=== PATIENT | male | born 1975 | race Caucasian/White ===

== ENCOUNTER 2023-01-01 23:46 | Emergency (ER) | payer BC, SELFPAY ==
[2023-01-01 23:52] VITALS: BP 136/87; PULSE 83; RESP 14; TEMP 37; O2SAT 93; BMI 28.3
[2023-01-02 00:17] VITALS: BP 127/77; PULSE 78; RESP 18; TEMP 36.9; O2SAT 94
--- NOTE | 2023-01-02 00:20 | PC.NURSE ---
Pt ca&ox4, no signs of distress. Pt ambulates with a steady gait. Pt reports unsure how he sustained the injury to his right thumb nail. Vitals stable. Pt changed into hospital attire. Plan of care ongoing.
--- NOTE | 2023-01-02 00:41 | ED.EXTPRO ---
HPI - Extremity Problem General Chief complaint: Extremity Injury, Upper Stated complaint: Infection on thumb nail Time Seen by Provider: 01/02/23 00:36 Source: patient Mode of arrival: ambulatory Limitations: no limitations History of Present Illness HPI Narrative: Patient comes to the emergency room complaining of an infection in the right thumb. Patient states that approximately 4 days ago, patient was doing some yd work. A few days later, he started noticing erythema spreading from the distal end of the nail towards the skin portion of the thumb. Patient denies fever or chills. Related Data Previous Rx's Medication Instructions Recorded miconazole nitrate 2 % topical 1 appl topical BID #14.2 grams 01/02/23 cream (Antifungal (miconazole)) sulfamethoxazole 800 1 tab PO BID #14 tabs 01/02/23 mg-trimethoprim 160 mg tablet (Bactrim DS) Allergies Allergy/AdvReac Type Severity Reaction Status Date / Time codeine AdvReac Unknown Verified 01/01/23 23:50 Review of Systems Review of Systems: Constitutional : No Weight loss, No Fever, No Chills, No Night Sweats, No Fatigue, No Malaise ENT/Mouth : No Hearing loss, No Ear Pain, No Nasal Congestion, No Sinus Pain, No Hoarseness, No sore throat, No Rhinorrhea, No Swallowing Difficulty Eyes: No Eye Pain, No Swelling, No Redness, No Foreign Body, No Discharge, No Vision Changes Cardiovascular : No Chest Pain, No SOB, No Dyspnea on Exertion, No Orthopnea, No Edema, No Palpitations Respiratory : No Cough, No Sputum, No Wheezing, No Smoke Exposure, No Dyspnea Gastrointestinal : No Nausea, No Vomiting, No Diarrhea, No Constipation, No abdominal Pain, No Hematochezia, No Melena Genitourinary : no irregular bleeding, No Dysuria, No Urinary Frequency, No Hematuria, No Urinary Incontinence, No Urgency, No Flank Pain, No Urinary Flow Changes, No Hesitancy Musculoskeletal : No joint pain, No Myalgias, No Joint Swelling Skin : Erythema/cellulitis right thumb Neuro : No Weakness, No Numbness, No Paresthesias, No Loss of Consciousness, No Dizziness, No Headache Psych : No Anxiety/Panic, No Depression, No SI/HI/AH/VH, No Social Issues, Heme/Lymph: No Bruising, No Bleeding,No Lymphadenopathy Endocrine : No Polyuria, No Polydipsia, No Temperature Intolerance [facility] Social History Social History Smoked in Last 30 Days: Yes Use of substances other than those prescribed or required for medical reasons: No Advance Directives: No Advance Directives Information Provided: No Physical Exam Vital Signs: Vital Signs: Last Vital Signs Temp 98.4 F 01/02/23 00:17 Pulse 78 01/02/23 00:17 Resp 18 01/02/23 00:17 BP 127/77 01/02/23 00:17 Pulse Ox 94 01/02/23 00:17 O2 Del Method Room Air 01/02/23 00:17 BMI result Body Mass Index 28.3 Const: Other: Appearance: Alert. Oriented X3. No acute distress. Eyes: Pupils equal, round and reactive to light. ENT: Pharynx normal. Neck: Normal inspection. Neck supple. No lymph nodes noted. No crepitus CVS: Normal heart rate and rhythm. Pulses normal. Normal S1 and S2 Respiratory: No respiratory distress. Breath sounds normal. No Wheezing. No rales Abdomen: Soft and nontender. No rigidity. No distention. Skin: Skin warm and dry. Normal skin color. Normal skin turgor. Under the right thumb distal end of the nail there is some erythema spreading towards the distal finger, not pus drainage, no obvious foreign body under the nail Extremities: No lower extremity edema. No Lacerations. No Rash Neuro: Oriented X 3. No motor deficit. No sensory deficit. Moving all extremities. No slurred speech. CN 2 through 12 grossly intact Psych: calm, cooperative, normal affect Medical Decision Making Medical Decision Making MDM Narrative: -I discussed with the patient that this could be cellulitis but could be a fungal infection given that he has been working with [employer]. - Patient received the 1st dose of p.o. antibiotic, Bactrim. Differential Diagnosis Differential Diagnoses: The differential diagnosis associated with the presentation includes (Cellulitis, dermatitis, fungal infection) Discharge Plan Discharge Clinical Impression: Cellulitis of finger Patient Disposition: Home, Self-Care Instructions: Cellulitis (ED) Additional Instructions: Please follow-up with your primary care physician tomorrow. If you have any worsening or new symptoms, please return to the emergency room or call 911 Prescriptions: New sulfamethoxazole-trimethoprim [Bactrim DS] 800-160 mg tablet 1 tab PO BID Qty: 14 0RF miconazole nitrate [Antifungal (miconazole)] 2 % cream 1 appl topical BID Qty: 14.2 0RF
--- NOTE | 2023-01-02 00:58 | PC.NURSE ---
Pt medicated per may. Plan of care ongoing.
== END 2023-01-02 01:15 | disposition home or self-care (01) ==
PROVIDERS: Emergency Provider Emergency Medicine; PCP Family Medicine
DX: L03.011 Cellulitis of right finger (principal)
CPT/HCPCS: 99283; 99284

== ENCOUNTER 2023-08-22 13:36 | Emergency (ER) | payer BC, SELFPAY ==
--- NOTE | ~2023-08-22 | XR_ITS ---
EXAMINATION: XR HAND, LEFT CLINICAL INFORMATION: Lateral pain and swelling COMPARISON: None available. TECHNIQUE: PA, lateral, and oblique views of the left hand. FINDINGS: There is a complex 5th metacarpal fracture, nondisplaced.. Alignment is anatomic. Joint spaces are maintained. No erosions or soft tissue calcifications. There is soft tissue swelling. XR/XR hand LT min 3V IMPRESSION: Nondisplaced complex 5th metacarpal fracture.
[2023-08-22 14:09] VITALS: BP 121/75; PULSE 79; RESP 20; O2SAT 97; BMI 26.4
--- NOTE | 2023-08-22 14:12 | ED.UPPEXIN ---
HPI - Extremity Injury (Upper) General Chief Complaint: Extremity Injury, Upper Stated Complaint: L hand inj Time Seen by Provider: 08/22/23 15:20 Source: patient, RN notes reviewed and old records reviewed Mode of arrival: ambulatory History of Present Illness ED Provider: Raiza Rajput PA-C HPI narrative: 48-year-old male with no significant past medical history presenting to the ED complaining of left hand/5th digit pain s/p finger getting caught in hole while on water slide yesterday. Denies injury to the area, head trauma or LOC MD complaint: injury to: left Related Data Previous Rx's ?Medication ?Instructions ?Recorded miconazole nitrate 2 % topical 1 appl topical BID #14.2 grams 01/02/23 cream (Antifungal (miconazole)) sulfamethoxazole 800 1 tab PO BID #14 tabs 01/02/23 mg-trimethoprim 160 mg tablet (Bactrim DS) Allergies Allergy/AdvReac Type Severity Reaction Status Date / Time codeine AdvReac Unknown Verified 08/22/23 14:11 Review of Systems Review of Systems: Constitutional: No Fever, No Chills ENT/Mouth: No Ear Pain, No Nasal Congestion, No sore throat, No Rhinorrhea, No Swallowing Difficulty Cardiovascular: No Chest Pain, No SOB Respiratory: No Cough Gastrointestinal: No Nausea, No Vomiting, No Diarrhea, No Constipation, No Abdominal pain Musculoskeletal: + joint pain, No Myalgias, + Joint Swelling Skin: No Skin Lesions, No rash Neuro: No Weakness, No Numbness, No Paresthesias Yes all other systems are reviewed and are negative Constitutional: Constitutional: Reports as per [facility] Past Medical History Attestation statement: The following information was validated with the patient. Source: old records reviewed Social History Social History Advance Directives: No Advance Directives Information Provided: Yes Physical Exam Vital Signs: Vital Signs: Last Vital Signs Temp 97.9 F 08/22/23 16:34 Pulse 72 08/22/23 16:34 Resp 18 08/22/23 16:34 BP 132/76 08/22/23 16:34 Pulse Ox 98 08/22/23 16:34 O2 Del Method Room Air 08/22/23 16:34 BMI result Body Mass Index 26.4 Const: General: cooperative, healthy appearing and no acute distress Orientation/consciousness: patient oriented x3 Limitations: no limitations HEENT: Head: Yes normal to inspection and Yes atraumatic Ears: hearing grossly normal bilaterally General nose exam: Normal external nose present Face and sinus: Yes normal facial exam Eyes: General: appearance normal, both eyes and all related structures EOM: EOMs intact bilaterally Neck: Neck: Yes normal visual inspection and Yes no meningeal signs Resp: Effort & Inspection: normal respiratory effort and no respiratory distress Auscultation: clear to auscultation bilaterally Cardio: Rate: regular rate Heart sounds: S1 normal heart sound present and S2 normal heart sound present Skin: Rashes: no rashes Wounds: no wounds Neuro: General: patient oriented x3, tone normal and no meningeal signs Cranial nerves: Yes CN's II-XII intact bilaterally Gait exam (Neuro): Normal gait present Extrem: Other: Left hand > 5th digit with noted swelling and tenderness. ROM intact with pain. Neurovascularly intact. Wrist nontender. No snuffbox tenderness Course Course Course Narrative: This is a rapid medical exam performed by Tee Conway NP: Additional HPI, ROS, PE not included below will be deferred to primary provider. Patient is a 48-year-old right hand dominant male presenting to the emergency department with complaint of left lateral hand pain swelling. Reports that he was on a slip and slide yesterday when his left 5th finger was caught in a hole on the slip and slide, has had pain and swelling since. Denies any numbness or tingling. Plan: xray Medical Decision Making Medical Decision Making MDM Narrative: 48-year-old male with no significant past medical history presenting to the ED complaining of left hand/5th digit pain s/p finger getting caught in hole while on water slide yesterday. On exam vital signs stable, NAD, nontoxic appearing, physical exam as noted above. Concern for fracture vs sprain. No evidence of cellulitis plan: X-ray Please refer to course for remaining clinical decision making, interpretation of labs/imaging results, and discussions with consultants and/or family members. Differential Diagnosis Differential Diagnoses: The differential diagnosis associated with the presentation includes As above Independent Interpretation I performed an independent interpretation of an: Plain X-Ray (My interpretation: Boxer's fracture) Radiology Impression Discussion of test interpretation with radiology: I have reviewed the radiologist's reading. External Record Review External record reviewed: Inpatient record, Office record, Outpatient record, Prior outpatient labs, Prior outpatient radiology, Primary care record and Outside ED record Tests considered The following testing was considered but not selected: As above Prescription Management I considered prescription management with: Pain Medication Procedures Orthopedic Splinting/Casting Injury #1: Side: left Upper Extremity Injury Location: hand Upper Extremity Immobilizer: ulnar gutter Discharge Plan Discharge Clinical Impression: Closed fracture of 5th metacarpal Patient Disposition: Home, Self-Care Instructions: Hand Fracture (ED) Additional Instructions: You have a fractured 5th metacarpal bone Keep splint on, dry and clean If fingers become increasingly swollen, number discolored remove splint and return to the ED YOU NEED TO FOLLOW-UP WITH [facility] [employer]. CALL TOMORROW TO MAKE AN APPT Prescriptions: No Action sulfamethoxazole-trimethoprim [Bactrim DS] 800-160 mg tablet 1 tab PO BID Qty: 14 0RF miconazole nitrate [Antifungal (miconazole)] 2 % cream 1 appl topical BID Qty: 14.2 0RF Referrals: [facility] [Provider Group] - 5 days Print Language: Polish
[2023-08-22 15:31] VITALS: BP 130/74; PULSE 67; RESP 18; TEMP 36.6; O2SAT 98
--- NOTE | 2023-08-22 15:35 | PC.NURSE ---
PT AWAITING PROVIDER ASSESSMENT, HE HAS A +FX REPORTED IN THE IMAGING. HE STATES PAIN IS MANAGED AT THIS TIME. HE HAS GOOD DISTAL CIRCULATION AND MVMT
[2023-08-22 16:34] VITALS: BP 132/76; PULSE 72; RESP 18; TEMP 36.6; O2SAT 98
[2023-08-22 16:53] VITALS: BP 132/76; PULSE 72; RESP 18; TEMP 36.6; O2SAT 98
== END 2023-08-22 17:03 | disposition home or self-care (01) ==
PROVIDERS: Emergency Provider Student in an Organized Health Care Education/Training Program; PCP Family Medicine
DX: S62.307A Unspecified fracture of fifth metacarpal bone, left hand, initial encounter for closed fracture (principal); X58.XXXA Exposure to other specified factors, initial encounter; Y93.9 Activity, unspecified; Y92.89 Other specified places as the place of occurrence of the external cause; Y99.9 Unspecified external cause status
CPT/HCPCS: 29125; 73130; 99282; 99284

== ENCOUNTER 2023-08-24 08:43 | Outpatient (AMB) | payer BC, SELFPAY ==
--- NOTE | 2023-08-24 08:59 | MHC.OFFVIS ---
Vital Signs 08/24/23 09:11 Height 6 ft Weight 195 lb BMI 26.4 Intake Visit Reasons: N/p LT 5th dight fx 08/21/23 Intake Note: Santosh a 48 year old right hand dominant male who presents today for an ER follow up of left 5th digit fracture, DOI 08/21/23. Patient reports that he was going down a water slide when his finger had gotten caught in a hole. [place] [facility] [place] and placed in a splint. Currently his discomfort comes with use of his left arm. Denies numbness or tingling. Allergies codeine Adverse Reaction (Verified 08/24/23 09:00) Unknown HPI HPI N/p LT 5th dight fx 08/21/23: Details: 48-year-old right hand dominant male who presents to the office today for an ER follow-up of left 5th metacarpal fracture while going down a water slide when his finger got caught in a hole, 08/21/23. He was seen at ER where x-rays were performed and he was placed in a splint. He currently states he has discomfort that comes with the use of his arm. He denies any numbness or tingling. [facility] Social History (Updated 08/24/23 @ 09:01 by Claudia Cordova Beni) Patient Tobacco Use Status: Current someday Tobacco user Current occupational status: employed Current occupation: [employer], right hand dominant Review of Systems Const All systems reviewed & are unremarkable except as noted in HPI and below Physical Exam Vital Signs: BMI result Body Mass Index 26.4 Const General: cooperative, healthy appearing, comfortable, no acute distress, well developed and alert Orientation/consciousness: patient oriented x3 HEENT Head: Yes normal to inspection, Yes normocephalic and Yes atraumatic Eyes General: appearance normal, both eyes and all related structures Resp Effort & Inspection: normal respiratory effort and able to speak in complete sentences Cardio Rate: regular rate Peripheral pulses: Peripheral pulses 2+ throughout GI Palpation (GI): Soft to palpation Skin Lesions: no lesions Rashes: no rashes Neuro General: patient oriented x3 Extrem Other: Left hand: Normal to inspection. There is some tenderness over the shaft of the 5th metacarpal. There is no scissoring or angulation of the small finger. He can fully extend and bring his hand to a closed fist. Office Procedures Casting/Splints 42924-Wqey/Wrist Cast Application Procedure code (CPT) selection complete Fracture Care Fracture Billing Code: Fracture Billing Code Results Reviewed Results Reviewed: XR hand LT min 3V 08/22/23 IMPRESSION: Nondisplaced complex 5th metacarpal fracture. Assessment & Plan Assessment & Plan (1) Closed fracture of 5th metacarpal: Code(s): S62.308A - Unspecified fracture of other metacarpal bone, initial encounter for closed fracture Category: Medical Qualifiers: Encounter type: initial encounter Fracture alignment: nondisplaced Laterality: left Metacarpal location: shaft Qualified Code(s): S62.357A - Nondisplaced fracture of shaft of fifth metacarpal bone, left hand, initial encounter for closed fracture Plan He was placed in a short leg cast and with valeria taping his small finger to ring finger. He will avoid any type of lifting, pushing, pulling or carrying greater than a cellphone. I did instruct him that he needs to keep the cast clean, dry and intact. He will see me back in 4-5 weeks with cast off and new x-rays, sooner if needed. Patient Instructions: Scribed for Kathia Gomes PA-C, by Deacon Sharp medical technician, on 08/24/2023 at 8:45 AM EST.? I, Kathia Gomes PA-C, have personally reviewed and agree with the information entered by the scribe. Coding Level of Care Code New Pt Level 3 (97631) Diagnoses Closed nondisplaced fracture of shaft of fifth metacarpal bone of left hand, initial encounter S62.357A Encounter type: initial encounter Fracture alignment: nondisplaced Laterality: left Metacarpal location: shaft CPT Codes Casting - CPT: 73278-Vpwb/Wrist Cast Application ([id number]) Fracture Care - Fracture Billing Code: Fracture Billing Code ([id number])
[2023-08-24 09:11] VITALS: BMI 26.4
== END 2023-08-24 10:08 | disposition home or self-care (01) ==
PROVIDERS: PCP Family Medicine; Visit Provider Physician Assistant
DX: S62.357A Nondisplaced fracture of shaft of fifth metacarpal bone, left hand, initial encounter for closed fracture (principal)
CPT/HCPCS: 26600; 99203

== ENCOUNTER → 2023-08-24 08:43 | Outpatient (BNVA) | payer BC, SELFPAY | PROVIDERS: PCP Family Medicine; Visit Provider Physician Assistant | DX: S62.357A Nondisplaced fracture of shaft of fifth metacarpal bone, left hand, initial encounter for closed fracture (principal) | CPT/HCPCS: 26600 ==

== ENCOUNTER 2023-09-28 08:00 | Outpatient (REF) | payer BC, SELFPAY ==
--- NOTE | ~2023-09-28 | XR_ITS ---
EXAMINATION: XR HAND, LEFT CLINICAL INFORMATION: Pain, cast off. COMPARISON: 08/22/2023. TECHNIQUE: PA, lateral, and oblique views of the left hand. FINDINGS: Redemonstration of complex fifth metacarpal fracture. There is mild displacement with some interval bony bridging. Joint spaces and alignment preserved. XR/XR hand LT min 3V IMPRESSION: Mildly displaced complex fifth metacarpal fracture with some evidence of interval bony bridging.
== END 2023-09-28 08:01 | disposition home or self-care (01) ==
LOC: HO.HOSX 08:00
PROVIDERS: Visit Provider Physician Assistant
DX: S62.357D Nondisplaced fracture of shaft of fifth metacarpal bone, left hand, subsequent encounter for fracture with routine healing (principal); X58.XXXD Exposure to other specified factors, subsequent encounter
CPT/HCPCS: 73130

== ENCOUNTER 2023-09-28 09:08 | Outpatient (AMB) | payer BC, SELFPAY ==
--- NOTE | 2023-09-28 09:33 | A.OFFVIS_ITS ---
Intake Visit Reasons: OV- LT 5th dight fx 08/21/23 Intake Note: Santosh a 48 year old right hand dominant male who presents today for a follow up of left hand, 5th digit fracture, DOI 08/21/23. Cast off and xrays updated. Patient reports he is doing well, states no pain or discomfort. Allergies codeine Adverse Reaction (Verified 09/28/23 09:42) Unknown Medication List - Last Reconciled 09/28/23 by Kathia Gomes PA-C miconazole nitrate 2% (Antifungal (miconazole)) 1 appl topical BID sulfamethoxazole-trimethoprim 800-160 mg (Bactrim DS) 1 tab PO BID HPI HPI OV- LT 5th dight fx 08/21/23: Details: 48-year-old right hand dominant male who returns to the office today for a follow-up of left 5th metacarpal fracture, 08/21/23. He reports he has no pain or discomfort and is doing well overall. He has no concerns today. [facility] Social History Patient Tobacco Use Status: Current someday Tobacco user Current occupational status: employed Current occupation: [employer], right hand dominant Review of Systems Const All systems reviewed & are unremarkable except as noted in HPI and below Physical Exam Const General: cooperative, healthy appearing, comfortable, no acute distress, well developed and alert Orientation/consciousness: patient oriented x3 HEENT Head: Yes normal to inspection, Yes normocephalic and Yes atraumatic Eyes General: appearance normal, both eyes and all related structures Resp Effort & Inspection: normal respiratory effort and able to speak in complete sentences Cardio Rate: regular rate Peripheral pulses: Peripheral pulses 2+ throughout GI Palpation (GI): Soft to palpation Skin Lesions: no lesions Rashes: no rashes Neuro General: patient oriented x3 Extrem Other: Left hand: Normal to inspection. There is no pain or tenderness over the shaft of the 5th metacarpal. There is no scissoring or angulation of the small finger. He can fully extend and bring his hand to a closed fist. He has full ROM of the wrist and finger. Results Reviewed Results Reviewed: Xrays were obtained in the office today and personally reviewed by me of the left hand Nondisplaced complex 5th metacarpal fracture with stable alignement and interval healing. . Assessment & Plan Assessment & Plan (1) Closed fracture of 5th metacarpal: Code(s): S62.308A - Unspecified fracture of other metacarpal bone, initial encounter for closed fracture Category: Medical Qualifiers: Encounter type: initial encounter Fracture alignment: nondisplaced Laterality: left Metacarpal location: shaft Qualified Code(s): S62.357A - Nondisplaced fracture of shaft of fifth metacarpal bone, left hand, initial encounter for closed fracture Plan He was transitioned to a Velcro wrist splint which he will wear with activities only. He will avoid lifting anything greater than 15 20 pounds. I would like to see him back in 4-6 weeks with new x-rays, sooner if needed. Orders: Orders XR hand LT min 3V Today M79.642 - Pain in left hand Patient Instructions: Scribed for Kathia Gomes PA-C, by Deacon Sharp medical detail representative, on 09/28/2023 at 9:15 AM EST.? I, Kathia Gomes PA-C, have personally reviewed and agree with the information entered by the scribe. Coding Level of Care Code Global (17369) Diagnoses Closed nondisplaced fracture of shaft of fifth metacarpal bone of left hand, initial encounter S62.357A Encounter type: initial encounter Fracture alignment: nondisplaced Laterality: left Metacarpal location: shaft
== END 2023-09-28 09:57 | disposition home or self-care (01) ==
PROVIDERS: PCP Family Medicine; Visit Provider Physician Assistant
DX: S62.357A Nondisplaced fracture of shaft of fifth metacarpal bone, left hand, initial encounter for closed fracture (principal)
CPT/HCPCS: 99024

== ENCOUNTER 2023-10-28 08:15 | Outpatient (REF) | payer BC, SELFPAY ==
--- NOTE | ~2023-10-28 | XR_ITS ---
EXAMINATION: XR HAND, LEFT CLINICAL INFORMATION: Pain. COMPARISON: September 28, 2023, August 22, 2023. TECHNIQUE: PA, lateral, and oblique views of the left hand. FINDINGS: Redemonstration of complex fifth metacarpal fracture with mild displacement and some interval bony bridging. Joint spaces and alignment are preserved. XR/XR hand LT min 3V IMPRESSION: Redemonstration of complex fifth metacarpal fracture with mild displacement and some interval bony bridging.
== END 2023-10-28 08:16 | disposition home or self-care (01) ==
LOC: HO.HOSX 08:15
PROVIDERS: Visit Provider Physician Assistant
DX: S62.357A Nondisplaced fracture of shaft of fifth metacarpal bone, left hand, initial encounter for closed fracture (principal); Y99.9 Unspecified external cause status; Y92.9 Unspecified place or not applicable; Y93.9 Activity, unspecified
CPT/HCPCS: 73130

== ENCOUNTER 2023-10-28 09:05 | Outpatient (AMB) | payer BC, SELFPAY ==
--- NOTE | 2023-10-28 09:25 | MHC.OFFVIS ---
Vital Signs 10/28/23 09:28 Height 6 ft Weight 195 lb BMI 26.4 Intake Visit Reasons: OV-left small finger fx w xry per TM Intake Note: Santosh a 48 year old male who presents today for a follow up of left small finger fx, DOI 08/21/23. Patient reports he is doing well, states discomfort located at his 5th MCP and in his wrist. States he uses brace as needed and continues to work on his ROM at home. Allergies codeine Adverse Reaction (Verified 10/28/23 09:27) Unknown HPI HPI OV-left small finger fx w xry per TM: Details: Santosh is a 48-year-old male who presents today for a follow-up of left small finger fracture, DOI 08/21/23. He reports he is doing well. He reports that he has been experiencing pain in his wrist and at his fifth MCP. He state that he continues to work on his ROM at home and wears a brace as needed. [facility] Social History Patient Tobacco Use Status: Current someday Tobacco user Current occupational status: employed Current occupation: [employer], right hand dominant Review of Systems Const All systems reviewed & are unremarkable except as noted in HPI and below Physical Exam Vital Signs: BMI result Body Mass Index 26.4 Const General: cooperative, healthy appearing, comfortable and no acute distress Orientation/consciousness: patient oriented x3 HEENT Head: Yes normal to inspection, Yes normocephalic and Yes atraumatic Eyes General: appearance normal, both eyes and all related structures Neck Neck: Yes normal visual inspection and Yes no JVD Chest Chest palpation & inspection: normal inspection of the chest Resp Effort & Inspection: normal respiratory effort Auscultation: clear to auscultation bilaterally, crackles (no), rales (no), rhonchi (no) and wheezes (no) Cardio Jugular venous distension: no JVD Rate: regular rate Rhythm: regular rhythm Heart sounds: S1 normal heart sound present, S2 normal heart sound present, Murmur heart sound present (no) and Rub heart sound present (no) Peripheral pulses: Peripheral pulses 2+ throughout GI Palpation (GI): Soft to palpation Skin Lesions: no lesions Rashes: no rashes Neuro General: patient oriented x3 Extrem Other: Left hand: Normal to inspection. There is no pain or tenderness over the shaft of the 5th metacarpal. There is no scissoring or angulation of the small finger. He can fully extend and bring his hand to a closed fist. He has full ROM of the wrist and finger. General: Yes normal to inspection, Yes no pedal edema and Yes no calf tenderness Results Reviewed Results Reviewed: Xrays were obtained in the office today and personally reviewed by me of the left hand Nondisplaced complex 5th metacarpal fracture with stable alignement and interval healing. . Assessment & Plan Assessment & Plan (1) Closed fracture of 5th metacarpal: Code(s): S62.308A - Unspecified fracture of other metacarpal bone, initial encounter for closed fracture Category: Medical Qualifiers: Encounter type: initial encounter Fracture alignment: nondisplaced Laterality: left Metacarpal location: shaft Qualified Code(s): S62.357A - Nondisplaced fracture of shaft of fifth metacarpal bone, left hand, initial encounter for closed fracture Plan He will resume normal activities as tolerated. I did show him some stretching exercises in the office today to improve his wrist range of motion and also encouraged him to work with occupational therapy. If this is not improving, we will hold off on at this time. He will see us back as needed. Orders: Orders XR hand LT min 3V Today M79.642 - Pain in left hand Patient Instructions: Scribed for Kathia Gomes PA-C, by Pawan Salmeron medical insurance biller, on 10/28/2023 at 9:15 AM EST. IKathia PA-C, have personally reviewed and agree with the information entered by the scribe. Coding Level of Care Code Global (40586) Diagnoses Closed nondisplaced fracture of shaft of fifth metacarpal bone of left hand, initial encounter S62.357A Encounter type: initial encounter Fracture alignment: nondisplaced Laterality: left Metacarpal location: shaft
[2023-10-28 09:28] VITALS: BMI 26.4
== END 2023-10-28 09:57 | disposition home or self-care (01) ==
PROVIDERS: PCP Family Medicine; Visit Provider Physician Assistant
DX: S62.357A Nondisplaced fracture of shaft of fifth metacarpal bone, left hand, initial encounter for closed fracture (principal)
CPT/HCPCS: 99024